=== PATIENT | female | born 1975 | race African-American/Black ===

== ENCOUNTER 2017-02-18 08:33 | Emergency (ER) | payer OTHER ==
[~2017-02-18] VITALS: Ht 172.7 cm; Wt 93.4 kg
[2017-02-18 08:40] VITALS: BP 166/94
[2017-02-18] MEDS ORDERED: CYCL10TA2 PO (09:46)
[2017-02-18] MEDS ORDERED: NAPR500T PO (09:46)
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
== END 2017-02-18 10:00 | disposition home or self-care (01) ==
LOC: ER 08:33
DX: S46.811A Strain of other muscles, fascia and tendons at shoulder and upper arm level, right arm, initial encounter (principal); J45.909 Unspecified asthma, uncomplicated; X58.XXXA Exposure to other specified factors, initial encounter; Y93.89 Activity, other specified; Y99.8 Other external cause status; Y92.89 Other specified places as the place of occurrence of the external cause
CPT/HCPCS: 99283